=== PATIENT | female | born 1985 | race Caucasian/White ===

== ENCOUNTER 2020-10-14 07:30 | Inpatient (IN) | payer OTHER ==
[2020-10-09 16:44] VITALS: BMI 34.7
[2020-10-31] MEDS ORDERED: ceFAZolin SODIUM 1 GM VIAL IVPB ONE (07:59)
[2020-10-31] MEDS ORDERED: ONDANSETRON 4 MG/2 ML VIAL IVPUSH PRN ×2 (09:53→10:19)
[2020-10-31] MEDS ORDERED: BISACODYL 5 MG TABLET.DR (FP) PO PRN (09:53)
[2020-10-31] MEDS ORDERED: SIMETHICONE 80 MG TAB.CHEW (FP) PO PRN (09:53)
[2020-10-31] MEDS ORDERED: DOCUSATE SODIUM 100 MG CAPSULE (FP) PO PRN (09:53)
[2020-10-31] MEDS ORDERED: oxyCODONE HCL 5 MG TABLET PO PRN ×2 (09:58)
[2020-10-31] MEDS ORDERED: ACETAMINOPHEN 1000 MG/100 ML VIAL (NON FORMULARY) IVPB ONE (10:00)
[2020-10-31] MEDS ORDERED: LACTATED RINGERS SOLUTION 1,000 ML IV SCH (10:30)
[2020-10-31] MEDS: IBUPROFEN 800 MG/8 ML IJ IVPB PRN ×2 (11:29→16:21)
[2020-10-31] MEDS: CEFAZOLIN 1 GM/D5W 1 GM/50 ML BAG IVPB SCH ×2 (15:07→23:39)
[2020-10-31 19:53] LABS: HEMATOCRIT 40.6 % (32.4-45.2); HEMOGLOBIN 13.6 GM/dL (10.7-15.3); MCH 29.1 pg (25.7-33.7); MCHC 33.4 g/dl (32.0-36.0); MEAN CELL VOLUME 86.9 fl (80-96); MEAN PLT VOLUME 7.9 fl (7.5-11.1); PLATELET COUNT 315 K/MM3 (134-434); RBC 4.68 M/mm3 (3.60-5.2); RDW 13.2 % (11.6-15.6); WHITE BLOOD COUNT 13.4 K/mm3 (4.0-10.0)
[2020-10-31 20:59] LABS: POTASSIUM 3.8 mmol/L (3.5-5.1)
[2020-10-31 21:00] LABS: CALCIUM 8.4 mg/dL (8.5-10.1)
[2020-10-31 21:01] LABS: BLOOD UREA NITROGEN 11.8 mg/dL (7-18)
[2020-10-31 21:04] LABS: CREATININE 0.8 mg/dL (0.55-1.3)
[2020-10-31] MEDS: ACETAMINOPHEN 325 MG TABLET (FP) PO SCH ×2 (21:30→23:52)
[2020-10-31] MEDS ORDERED: oxyCODONE HCL 10 MG SUSTAINED ACTING TABLET PO SCH (22:00)
[2020-10-31] MEDS: HEPARIN NA (PORCINE) 5,000 UNITS/ML 1ML VIAL SQ SCH (23:35)
[2020-11-01] MEDS: ACETAMINOPHEN 325 MG TABLET (FP) PO SCH ×4 (05:17→23:10)
[2020-11-01 08:33] LABS: HEMATOCRIT 36.1 % (32.4-45.2); HEMOGLOBIN 12.1 GM/dL (10.7-15.3); MCH 28.9 pg (25.7-33.7); MCHC 33.5 g/dl (32.0-36.0); MEAN CELL VOLUME 86.3 fl (80-96); PLATELET COUNT 314 K/MM3 (134-434); RBC 4.19 M/mm3 (3.60-5.2); RDW 13.3 % (11.6-15.6); WHITE BLOOD COUNT 14.7 K/mm3 (4.0-10.0)
[2020-11-01 09:05] LABS: POTASSIUM 3.4 mmol/L (3.5-5.1)
[2020-11-01 09:07] LABS: BLOOD UREA NITROGEN 13.1 mg/dL (7-18); CALCIUM 8.4 mg/dL (8.5-10.1)
[2020-11-01 09:11] LABS: CREATININE 0.7 mg/dL (0.55-1.3)
[2020-11-01] MEDS: HEPARIN NA (PORCINE) 5,000 UNITS/ML 1ML VIAL SQ SCH ×3 (10:51→22:04)
[2020-11-01] MEDS: TOPIRAMATE 100 MG TABLET PO SCH (10:52)
[2020-11-01] MEDS: amLODIPine BESYLATE 10 MG TABLET (FP) PO SCH (10:52)
[2020-11-01] MEDS: HYDROXYCHLOROQUINE SO4 200 MG TABLET (FP) PO SCH (10:52)
[2020-11-02] MEDS: HEPARIN NA (PORCINE) 5,000 UNITS/ML 1ML VIAL SQ SCH (07:28)
[2020-11-02] MEDS ORDERED: ACETAMINOPHEN 325 MG TABLET (FP) ONE (09:17)
[2020-11-02] MEDS: HYDROXYCHLOROQUINE SO4 200 MG TABLET (FP) PO SCH (10:43)
[2020-11-02] MEDS: TOPIRAMATE 100 MG TABLET PO SCH (10:43)
[2020-11-02] MEDS: amLODIPine BESYLATE 10 MG TABLET (FP) PO SCH (10:43)
[2020-11-02 12:15] VITALS: BP 135/78; PULSE 84; TEMP 98.9
== END 2020-11-02 12:10 | disposition home or self-care (01) | DRG 519 ==
LOC: J2C 10-31 06:00 → J3W 10-31 12:49
PROVIDERS: ADMIT Obstetrics & Gynecology; ATTEND Obstetrics & Gynecology
PROC: 0UB90ZZ Excision of Uterus, Open Approach (ICD-10-PCS; principal; 2020-10-31 07:30)
DX: D25.1 Intramural leiomyoma of uterus (principal); N92.0 Excessive and frequent menstruation with regular cycle
CPT/HCPCS: 36415; 36430; 36511; 80048; 81025; 84703; 85027; 86850; 86900; 86901; 86922; 88305-TC; 94760; J0131; J1644; P9038; P9058

== ENCOUNTER 2024-01-10 04:06 | Day surgery (SDC) | payer OTHER ==
[2024-01-05 13:10] VITALS: BMI 33.6
[2024-01-10] MEDS ORDERED: ONDANSETRON 4 MG/2 ML VIAL ONE (07:04)
[2024-01-10] MEDS ORDERED: DEXAMETHASONE SOD PHOSPHATE 4 MG/1 ML VIAL ONE (07:04)
[2024-01-10] MEDS ORDERED: KETOROLAC TROMETHAMINE 30 MG/1 ML VIAL ONE (07:04)
[2024-01-10] MEDS ORDERED: LIDOCAINE HCL/PF 2% SDV 5ML VIAL ONE (07:04)
[2024-01-10] MEDS ORDERED: SEVOFLURANE 250 ML BTL ONE (07:07)
[2024-01-10] MEDS ORDERED: SUCCINYLCHOLINE CHLORIDE 200 MG/10 ML SYRINGE ONE (07:11)
[2024-01-10] MEDS ORDERED: PROPOFOL 20 ML ONE ×2 (07:11→08:21)
[2024-01-10] MEDS ORDERED: MIDAZOLAM HCL 2 MG/2 ML SINGLE DOSE VIAL ONE (07:12)
[2024-01-10] MEDS ORDERED: FENTANYL CITRATE/PF 50 MCG/ML VIAL ONE ×2 (07:12→07:15)
[2024-01-10] MEDS ORDERED: ACETAMINOPHEN INJECTION 100 ML IVPB ONE (07:32)
[2024-01-10] MEDS ORDERED: ACETAMINOPHEN 325 MG TABLET (FP) PO PRN (07:46)
[2024-01-10] MEDS ORDERED: IBUPROFEN 400 MG TABLET (FP) PO PRN (07:46)
[2024-01-10] MEDS ORDERED: oxyCODONE HCL 5 MG TABLET PO PRN (08:02)
[2024-01-10] MEDS ORDERED: ONDANSETRON 4 MG/2 ML VIAL IVPUSH PRN (08:02)
[2024-01-10] MEDS: LACTATED RINGERS SOLUTION 1,000 ML IV SCH (10:10)
[2024-01-10 10:30] VITALS: PULSE 74; RESP 18
[2024-01-10 11:06] VITALS: BP 119/71; TEMP 97.7
== END 2024-01-10 11:10 | disposition home or self-care (01) ==
LOC: JASU-SURG 04:06
PROVIDERS: ATTEND Obstetrics & Gynecology
PROC: 0UBC8ZZ Excision of Cervix, Via Natural or Artificial Opening Endoscopic (ICD-10-PCS; principal; 2024-01-10 07:30)
PROC: 0UB98ZZ Excision of Uterus, Via Natural or Artificial Opening Endoscopic (ICD-10-PCS; 2024-01-10 07:30)
DX: N92.0 Excessive and frequent menstruation with regular cycle (principal); D25.0 Submucous leiomyoma of uterus; N84.1 Polyp of cervix uteri; N80.03 Adenomyosis of the uterus
CPT/HCPCS: 81025; 86850; 86900; 86901; 88305-TC; 94760; J0131

== ENCOUNTER 2024-08-25 17:58 | Observation (INO) | payer OTHER ==
[2024-08-25] MEDS ORDERED: ONDANSETRON 4 MG/2 ML VIAL ONE (20:39)
[2024-08-25] MEDS ORDERED: ACETAMINOPHEN INJECTION 100 ML ONE (20:39)
[2024-08-25] MEDS: LACTATED RINGERS SOLUTION 1000 ML INFUS.BAG IV ONE (20:47)
[2024-08-25] MEDS: ACETAMINOPHEN 1000 MG/100 ML BAG IVPB ONE (20:47)
[2024-08-25] MEDS: ONDANSETRON 4 MG/2 ML VIAL IVPUSH ONE (20:47)
[2024-08-25 21:00] LABS: BASO % 0.2 % (0-2.0); EOS % 0.3 % (0-4.5); HEMATOCRIT 40.7 % (32.4-45.2); HEMOGLOBIN 13.5 GM/dL (10.7-15.3); LYMPH % 11.8 % (8-40); MCH 28.5 pg (25.7-33.7); MCHC 33.3 g/dl (32.0-36.0); MEAN CELL VOLUME 85.5 fl (80-96); MEAN PLT VOLUME 7.8 fl (7.5-11.1); MONO % 11.5 % (3.8-10.2); NEUT % 76.2 % (42.8-82.8); PLATELET COUNT 314 10^3/uL (134-434); RBC 4.76 M/mm3 (3.60-5.2); RDW 13.1 % (11.6-15.6); WHITE BLOOD COUNT 7.4 K/mm3 (4.0-10.0)
[2024-08-25 21:17] LABS: CHLORIDE 104 mmol/L (98-107); SODIUM 139 mmol/L (136-145)
[2024-08-25 21:19] LABS: ALBUMIN 3.4 g/dl (3.4-5.0)
[2024-08-25 21:20] LABS: BLOOD UREA NITROGEN 13.6 mg/dL (7-18); CO2 29 mmol/L (21-32); GLUCOSE,RANDOM 85 mg/dL (74-106)
[2024-08-25 21:22] LABS: CREATININE 0.7 mg/dL (0.55-1.3); SGOT/AST 14 U/L (15-37); SGPT/ALT 25 U/L (13-61)
[2024-08-25 21:23] LABS: PHOSPHOROUS 3.1 mg/dL (2.5-4.9)
[2024-08-25 21:24] LABS: BILIRUBIN,TOTAL 0.5 mg/dL (0.2-1)
[2024-08-25 21:25] LABS: ALK PHOS 75 U/L (45-117)
[2024-08-25 21:32] LABS: ANION GAP 7 mmol/L (4-13); POTASSIUM 2.8 mmol/L (3.5-5.1)
[2024-08-25 21:53] LABS: MAGNESIUM 1.7 mg/dL (1.8-2.4)
[2024-08-25] MEDS ORDERED: MAGNESIUM SULFATE IN WATER 2 GM/50 ML IVPB IVPB ONE (22:40)
[2024-08-25] MEDS ORDERED: KCL 10 MEQ IVPB 10 MEQ/100 ML INFUS.BAG IVPB ONE ×2 (22:43→23:17)
[2024-08-25] MEDS: MAGNESIUM SULF 50% (8.12 MEQ/2 ML-1 GM VIAL) IVPB ONE (22:53)
[2024-08-25] MEDS: KCL 10 MEQ IVPB 10 MEQ/100 ML INFUS.BAG IVPB SCH (23:33)
[2024-08-26] MEDS ORDERED: ONDANSETRON 4 MG/2 ML VIAL IVPUSH PRN (00:50)
[2024-08-26 02:27] VITALS: BMI 33.7
[2024-08-26] MEDS: ACETAMINOPHEN 500 MG TABLET (FP) PO ONE (03:22)
[2024-08-26] MEDS ORDERED: TRIMETHOBENZAMIDE HCL 200MG/2ML INJ IM PRN (03:38)
[2024-08-26] MEDS: D5-1/2NS+20 MEQ KCL - 20 MEQ/1,000 ML INFUS.BAG IV SCH (04:47)
[2024-08-26] MEDS: KCL 10 MEQ IVPB 10 MEQ/100 ML INFUS.BAG IVPB SCH ×2 (07:36→13:41)
[2024-08-26 08:29] LABS: BASO % 0.2 % (0-2.0); EOS % 0.9 % (0-4.5); HEMATOCRIT 36.9 % (32.4-45.2); HEMOGLOBIN 12.5 GM/dL (10.7-15.3); LYMPH % 21.9 % (8-40); MCHC 33.8 g/dl (32.0-36.0); MEAN CELL VOLUME 85.9 fl (80-96); MEAN PLT VOLUME 7.9 fl (7.5-11.1); MONO % 16.6 % (3.8-10.2); NEUT % 60.4 % (42.8-82.8); PLATELET COUNT 291 10^3/uL (134-434); RBC 4.29 M/mm3 (3.60-5.2); RDW 12.9 % (11.6-15.6); WHITE BLOOD COUNT 4.7 K/mm3 (4.0-10.0)
[2024-08-26 09:13] LABS: BLOOD UREA NITROGEN 10.2 mg/dL (7-18); CALCIUM 7.4 mg/dL (8.5-10.1); CREATININE 0.5 mg/dL (0.55-1.3); MAGNESIUM 2.1 mg/dL (1.8-2.4); PHOSPHOROUS 3.3 mg/dL (2.5-4.9)
[2024-08-26] MEDS: LOPERAMIDE HCL 2 MG CAPSULE PO PRN (09:51)
[2024-08-26] MEDS: HYDROCHLOROTHIAZIDE 25 MG TABLET (FP) PO SCH (09:51)
[2024-08-26] MEDS: amLODIPine BESYLATE 10 MG TABLET (FP) PO SCH (09:51)
[2024-08-26] MEDS: HYDROXYCHLOROQUINE SO4 200 MG TABLET (FP) PO SCH (10:59)
[2024-08-26] MEDS ORDERED: ALPRAZolam 0.25 MG TABLET PO PRN (11:47)
[2024-08-26] MEDS: POTASSIUM CHLORIDE ORAL LIQUID 20 MEQ/15 ML PO ONE (13:41)
[2024-08-26 21:41] LABS: PH,URINE 6.5 (5.0-8.0); URINE APPEARANCE CLEAR; URINE BILIRUBIN NEGATIVE (NEGATIVE); URINE COLOR YELLOW; URINE GLUCOSE (UA) NEGATIVE (NEGATIVE); URINE KETONE NEGATIVE (NEGATIVE); URINE LEUK ESTERASE NEGATIVE (NEGATIVE); URINE NITRITE NEGATIVE (NEGATIVE); URINE PROTEIN NEGATIVE (NEGATIVE)
[2024-08-26 21:44] LABS: HCG,QUALITATIVE URINE Negative
[2024-08-27 07:10] LABS: BASO % 0.3 % (0-2.0); EOS % 1.4 % (0-4.5); HEMATOCRIT 37.9 % (32.4-45.2); HEMOGLOBIN 12.5 GM/dL (10.7-15.3); LYMPH % 26.4 % (8-40); MCH 28.5 pg (25.7-33.7); MCHC 33.1 g/dl (32.0-36.0); MEAN CELL VOLUME 86.1 fl (80-96); MEAN PLT VOLUME 7.7 fl (7.5-11.1); MONO % 17.8 % (3.8-10.2); NEUT % 54.1 % (42.8-82.8); PLATELET COUNT 313 10^3/uL (134-434); RDW 12.8 % (11.6-15.6); WHITE BLOOD COUNT 4.6 K/mm3 (4.0-10.0)
[2024-08-27 07:29] LABS: POTASSIUM 3.3 mmol/L (3.5-5.1)
[2024-08-27 07:39] LABS: CALCIUM 7.7 mg/dL (8.5-10.1)
[2024-08-27 07:40] LABS: BLOOD UREA NITROGEN 6.3 mg/dL (7-18)
[2024-08-27 07:43] LABS: CREATININE 0.6 mg/dL (0.55-1.3)
[2024-08-27 07:45] LABS: BILIRUBIN,TOTAL 0.2 mg/dL (0.2-1); TOT PROT 6.4 g/dl (6.4-8.2)
[2024-08-27] MEDS: POTASSIUM CHLORIDE ORAL LIQUID 20 MEQ/15 ML PO ONE (14:35)
[2024-08-28 07:04] LABS: POTASSIUM 3.3 mmol/L (3.5-5.1)
[2024-08-28 07:08] LABS: CALCIUM 7.8 mg/dL (8.5-10.1)
[2024-08-28 07:09] LABS: ALBUMIN 3.1 g/dl (3.4-5.0); BLOOD UREA NITROGEN 7.9 mg/dL (7-18)
[2024-08-28 07:12] LABS: CREATININE 0.5 mg/dL (0.55-1.3)
[2024-08-28 07:13] LABS: BILIRUBIN,TOTAL 0.2 mg/dL (0.2-1)
[2024-08-28 07:14] LABS: TOT PROT 6.6 g/dl (6.4-8.2)
[2024-08-28] MEDS: POTASSIUM CHLORIDE ORAL LIQUID 20 MEQ/15 ML PO ONE (10:55)
[2024-08-28] MEDS: KCL 10 MEQ IVPB 10 MEQ/100 ML INFUS.BAG IVPB SCH (10:56)
[2024-08-28 11:57] VITALS: RESP 22
[2024-08-29 07:44] LABS: BLOOD UREA NITROGEN 6.1 mg/dL (7-18); CALCIUM 7.9 mg/dL (8.5-10.1); POTASSIUM 3.5 mmol/L (3.5-5.1)
[2024-08-29 07:47] LABS: CREATININE 0.5 mg/dL (0.55-1.3)
[2024-08-29 07:49] LABS: BILIRUBIN,TOTAL 0.2 mg/dL (0.2-1); TOT PROT 6.6 g/dl (6.4-8.2)
[2024-08-29 13:22] VITALS: BP 139/84; PULSE 81; TEMP 98.4
== END 2024-08-29 14:25 | disposition home or self-care (01) ==
LOC: JER 17:58 → JERBED 23:08 → J4W 08-26 02:07
PROVIDERS: ADMIT Internal Medicine; ATTEND Internal Medicine
PROC: 3E033NZ Introduction of Analgesics, Hypnotics, Sedatives into Peripheral Vein, Percutaneous Approach (ICD-10-PCS; principal; 2024-08-25)
PROC: 3E0337Z Introduction of Electrolytic and Water Balance Substance into Peripheral Vein, Percutaneous Approach (ICD-10-PCS; 2024-08-25)
PROC: 3E033GC Introduction of Other Therapeutic Substance into Peripheral Vein, Percutaneous Approach (ICD-10-PCS; 2024-08-25)
DX: M32.9 Systemic lupus erythematosus, unspecified (principal); K52.9 Noninfective gastroenteritis and colitis, unspecified; I10 Essential (primary) hypertension; E87.6 Hypokalemia; G44.89 Other headache syndrome
CPT/HCPCS: 0241U-QW; 36415; 71046-TC-FY; 80048; 80053; 81003; 83690; 83735; 84100; 84703; 85025; 87086; 93005; 93010; 96365; 96366; 96375; 99285-25; G0378; J0131

== ENCOUNTER 2024-10-06 02:27 | Emergency (ER) | payer OTHER ==
[2024-10-06 02:32] VITALS: BP 144/86; PULSE 81; RESP 17; TEMP 97.8; BMI 33.9
[2024-10-06] MEDS ORDERED: ACETAMINOPHEN 500 MG TABLET (FP) ONE (04:23)
[2024-10-06] MEDS: ACETAMINOPHEN 500 MG TABLET (FP) PO ONE (04:28)
== END 2024-10-06 06:38 | disposition home or self-care (01) ==
LOC: JER 02:27
DX: S09.90XA Unspecified injury of head, initial encounter (principal); M54.2 Cervicalgia; W01.198A Fall on same level from slipping, tripping and stumbling with subsequent striking against other object, initial encounter
CPT/HCPCS: 70450-TC; 72125-TC; 99284-25